=== PATIENT | female | born 1985 | race Caucasian/White ===

== ENCOUNTER → 2019-02-20 | Outpatient (REF) ==
[~2019-02-20] MED LIST: FLEXERIL 1010 MG/TAB PO
== END ==
LOC: ZMSC 22:02
DX: Z01.89 Encounter for other specified special examinations (principal)

== ENCOUNTER → 2019-02-21 | Outpatient (REF) | LOC: ZMSC 10:41 | DX: Z01.89 Encounter for other specified special examinations (principal) ==

== ENCOUNTER 2019-02-23 21:53 | Emergency (ER) | payer BC, MEDICARE ==
[~2019-02-23] VITALS: Ht 175.3 cm; Wt 86.4 kg
[2019-02-23 22:01] VITALS: TEMP 97.6
[2019-02-23] MEDS ORDERED: FLEXERIL 1010 MG/TAB PO (22:55)
[2019-02-24 00:40] VITALS: BP 119/73; PULSE 89
== END 2019-02-24 00:40 | disposition home or self-care (01) ==
LOC: COL.ER 21:53
DX: M25.511 Pain in right shoulder (principal); G89.18 Other acute postprocedural pain; Z98.890 Other specified postprocedural states; Z88.8 Allergy status to other drugs, medicaments and biological substances
CPT/HCPCS: J1170; J1885

== ENCOUNTER 2019-03-06 18:32 | Emergency (ER) | payer BC, MEDICARE ==
[~2019-03-06] VITALS: Ht 175.3 cm; Wt 86.4 kg
[2019-03-06 18:40] VITALS: BP 132/82; TEMP 97.4
[2019-03-06 19:38] LABS: BASO # 0.1 (0.0-0.2); BASO % 0.8 % (0.0-2.0); EOS % 0.2 % (0-4.0); GRAN # 9.1 (1.4-6.5); GRAN % 77.9 % (42.2-75.2); HEMATOCRIT 39.2 % (37.0-47.0); HEMOGLOBIN 12.8 g/dl (12.5-16.0); LYMPH # 2.1 (1.2-3.4); LYMPH % 17.7 % (20.0-51.0); MEAN CELL VOLUME 84 fl (80.0-100.0); MEAN CORPUSCULAR HEMOGLOBIN 27 pg (27.0-31.0); MEAN CORPUSCULAR HGB CONC 33 g/dl (33.0-37.0); MEAN PLATELET VOLUME 10.6 fl (7.4-10.4); MONO # 0.4 (0.1-0.6); PLATELET COUNT 344 K/mm3 (130-400); RED BLOOD COUNT 4.69 M/mm3 (4.10-5.30); REDCELL DISTRIBUTION WIDTH-CV 13.8 % (11.5-14.5)
[2019-03-06 20:00] LABS: ALBUMIN 4.6 gm/dL (3.5-5.0); BILIRUBIN,TOTAL 0.5 mg/dL (0.0-1.0); C-REACTIVE PROTEIN 0.8 mg/dL (0.0-0.9); CALCIUM 10.1 mg/dL (8.4-10.2); CREATININE, serum 0.72 (0.52-1.25); POTASSIUM 3.9 mmol/L (3.4-5.0); TOTAL PROTEIN 8.1 gm/dL (6.4-8.2)
[2019-03-06 21:12] VITALS: PULSE 83
== END 2019-03-06 21:12 | disposition home or self-care (01) ==
LOC: COL.ER 18:32
PROVIDERS: Emergency Medicine
DX: G89.18 Other acute postprocedural pain (principal); M25.511 Pain in right shoulder; Z98.890 Other specified postprocedural states
CPT/HCPCS: J3010

== ENCOUNTER 2020-04-29 03:47 | Emergency (ER) | payer BC, MEDICARE ==
[~2020-04-29] VITALS: Ht 175.3 cm; Wt 99.5 kg
[2020-04-29 04:43] VITALS: BP 107/63; TEMP 97.8
[2020-04-29] MEDS ORDERED: NEURONTIN800 MG/TAB PO (04:53)
[2020-04-29] MEDS ORDERED: PRILOSEC10 MG PO (04:53)
[2020-04-29] MEDS ORDERED: REQUIP2 MG PO (04:53)
[2020-04-29 05:09] LABS: ALANINE AMINOTRANSFERASE 43 U/L (4-34); ALBUMIN 4.4 gm/dL (3.5-5.0); ALKALINE PHOSPHATASE 98 U/L (50-136); ANION GAP 14 mmol/L (7-16); AST,SGOT 139 U/L (15-37); BILIRUBIN,TOTAL 0.8 mg/dL (0.0-1.0); BLOOD UREA NITROGEN 2 mg/dL (7-17); CALCIUM 9.6 mg/dL (8.4-10.2); CARBON DIOXIDE 22 mmol/L (22-30); CHLORIDE 102 mmol/L (98-107); CREATININE, serum 0.65 (0.52-1.25); GLUCOSE 127 mg/dL (74-106); LIPASE < 10 U/L (23-300); POTASSIUM 3.7 mmol/L (3.4-5.0); SODIUM 138 mmol/L (137-145)
[2020-04-29 05:24] LABS: BASO # 0.1 (0.0-0.2); BASO % 0.9 % (0.0-2.0); EOS # 0.1 (0.0-0.7); EOS % 1.2 % (0-4.0); GRAN # 7.8 (1.4-6.5); HEMATOCRIT 46.8 % (37.0-47.0); HEMOGLOBIN 15.3 g/dl (12.5-16.0); LYMPH # 1.7 (1.2-3.4); LYMPH % 16.1 % (20.0-51.0); MEAN CELL VOLUME 93 fl (80.0-100.0); MEAN CORPUSCULAR HEMOGLOBIN 30 pg (27.0-31.0); MEAN CORPUSCULAR HGB CONC 33 g/dl (33.0-37.0); MONO # 0.6 (0.1-0.6); MONO % 5.4 % (1.7-9.3); PLATELET COUNT 210 K/mm3 (130-400); RED BLOOD COUNT 5.03 M/mm3 (4.10-5.30); REDCELL DISTRIBUTION WIDTH-CV 13.1 % (11.5-14.5)
[2020-04-29 05:38] LABS: COLLECTION METHOD CLEAN CATCH
[2020-04-29 05:46] LABS: MUCOUS Present /lpf; PH 6 (5-8); URINE APPEARANCE Hazy; URINE BACTERIA Rare /hpf; URINE BILIRUBIN Positive (NEGATIVE); URINE BLOOD 3+ (NEGATIVE); URINE COLOR Amber; URINE GLUCOSE Negative (NEGATIVE); URINE KETONE 1+ (NEGATIVE); URINE LEUKOCYTE ESTERASE Trace (NEGATIVE); URINE NITRATE Negative (NEGATIVE); URINE PROTEIN(semi-quant) 2+ (NEGATIVE); URINE RBC >50 /hpf; URINE UROBILINOGEN >=4.0 mg/dL (NEGATIVE)
[2020-04-29] MEDS ORDERED: ZOFRAN 4MG T4 MG/TAB PO (07:18)
[2020-04-29] MEDS ORDERED: REGLAN 5MG T5 MG/TAB PO (07:18)
[2020-04-29 08:42] VITALS: PULSE 66
[2020-04-29] MEDS ORDERED: VANCOCIN H125 MG/CAP PO (10:07)
== END 2020-04-29 08:40 | disposition home or self-care (01) ==
LOC: COL.ER 03:47
PROVIDERS: Emergency Medicine
DX: R11.2 Nausea with vomiting, unspecified (principal); R19.7 Diarrhea, unspecified; R10.13 Epigastric pain; E66.9 Obesity, unspecified; G62.9 Polyneuropathy, unspecified; Z68.32 Body mass index [BMI] 32.0-32.9, adult; Z86.69 Personal history of other diseases of the nervous system and sense organs; Z90.49 Acquired absence of other specified parts of digestive tract
CPT/HCPCS: J1200; J2405; J2765; J7030; Q9967

== ENCOUNTER 2020-08-19 11:14 | Emergency (ER) | payer BC, MEDICARE ==
[~2020-08-19] VITALS: Ht 175.3 cm; Wt 95.5 kg
[~2020-08-19 11:14] MED LIST changes: +BRINTELLIX20 PO; +DESYREL 100MG100 MG PO; +MINIPRESS2 MG PO; +NEURONTIN800 MG/TAB PO; +PRILOSEC 20MG20 MG PO; +REGLAN 5MG T5 MG/TAB PO; +REQUIP 1MG T1 MG/TAB PO; +VANCOCIN H125 MG/CAP PO; +ZOFRAN 4MG T4 MG/TAB PO
[2020-08-19 11:25] VITALS: TEMP 98.3
[2020-08-19 12:17] LABS: COLLECTION METHOD CLEAN CATCH
[2020-08-19 12:29] LABS: BASO # 0.1 (0.0-0.2); BASO % 0.6 % (0.0-2.0); EOS # 0.1 (0.0-0.7); EOS % 0.6 % (0-4.0); GRAN # 7.8 (1.4-6.5); GRAN % 79.6 % (42.2-75.2); HEMATOCRIT 48.2 % (37.0-47.0); HEMOGLOBIN 15.9 g/dl (12.5-16.0); LYMPH # 1.3 (1.2-3.4); LYMPH % 13.1 % (20.0-51.0); MEAN CELL VOLUME 89 fl (80.0-100.0); MEAN CORPUSCULAR HEMOGLOBIN 29 pg (27.0-31.0); MEAN CORPUSCULAR HGB CONC 33 g/dl (33.0-37.0); MEAN PLATELET VOLUME 11.9 fl (7.4-10.4); MONO # 0.6 (0.1-0.6); MONO % 5.9 % (1.7-9.3); PLATELET COUNT 253 K/mm3 (130-400); RED BLOOD COUNT 5.43 M/mm3 (4.10-5.30); REDCELL DISTRIBUTION WIDTH-CV 13.1 % (11.5-14.5)
[2020-08-19 12:39] LABS: ALANINE AMINOTRANSFERASE 59 U/L (4-34); ALBUMIN 4.7 gm/dL (3.5-5.0); ALKALINE PHOSPHATASE 146 U/L (50-136); ANION GAP 15 mmol/L (7-16); AST,SGOT 164 U/L (15-37); CALCIUM 9.6 mg/dL (8.4-10.2); CARBON DIOXIDE 24 mmol/L (22-30); CHLORIDE 98 mmol/L (98-107); CREATININE, serum 0.54 (0.52-1.25); GLUCOSE 154 mg/dL (74-106); POTASSIUM 3.7 mmol/L (3.4-5.0); SODIUM 137 mmol/L (137-145); TOTAL PROTEIN 8.5 gm/dL (6.4-8.2)
[2020-08-19 12:41] LABS: MUCOUS Present /lpf; PH 5 (5-8); URINE APPEARANCE Cloudy; URINE BACTERIA Moderate /hpf; URINE BILIRUBIN Negative (NEGATIVE); URINE BLOOD 2+ (NEGATIVE); URINE COLOR Amber; URINE GLUCOSE Negative (NEGATIVE); URINE KETONE Negative (NEGATIVE); URINE LEUKOCYTE ESTERASE 2+ (NEGATIVE); URINE NITRATE Negative (NEGATIVE); URINE PROTEIN(semi-quant) 2+ (NEGATIVE); URINE UROBILINOGEN >=4.0 mg/dL (NEGATIVE); URINE WBC >50 /hpf
[2020-08-19 12:51] LABS: BLOOD UREA NITROGEN < 2 mg/dL (7-17); LIPASE < 10 U/L (23-300)
[2020-08-19] MEDS ORDERED: PHENERGAN 25 TA25 MG PO (14:47)
[2020-08-19 17:12] VITALS: BP 125/84; PULSE 81
== END 2020-08-19 17:15 | disposition home or self-care (01) ==
LOC: COL.ER 11:14
PROVIDERS: Nurse Practitioner Primary Care
DX: E86.9 Volume depletion, unspecified (principal); N39.0 Urinary tract infection, site not specified; F43.10 Post-traumatic stress disorder, unspecified; Z90.49 Acquired absence of other specified parts of digestive tract; Z32.02 Encounter for pregnancy test, result negative; Z88.8 Allergy status to other drugs, medicaments and biological substances
CPT/HCPCS: J0696; J2550; J2765; J7030

== ENCOUNTER 2020-11-10 01:16 | Emergency (ER) | payer BC, MEDICARE ==
[~2020-11-10] VITALS: Ht 175.3 cm; Wt 100.0 kg
[~2020-11-10 01:16] MED LIST changes: +NORCO 325 MG-51 TAB PO; +PHENERGAN 25 TA25 MG PO
[2020-11-10 01:31] VITALS: BP 135/82; PULSE 112; TEMP 98.3
[2020-11-10] MEDS ORDERED: FLAGYL500 MG PO (02:05)
[2020-11-10] MEDS ORDERED: ZOFRAN ODT4 MG PO (02:05)
[2020-11-10] MEDS ORDERED: BENTYL 20MG20 MG/TAB PO (02:05)
[2020-11-10 02:11] LABS: BASO # 0.1 (0.0-0.2); EOS # 0.2 (0.0-0.7); EOS % 2.3 % (0-4.0); GRAN # 3.4 (1.4-6.5); GRAN % 51.9 % (42.2-75.2); HEMATOCRIT 44.8 % (37.0-47.0); HEMOGLOBIN 14.8 g/dl (12.5-16.0); LYMPH # 2.4 (1.2-3.4); MEAN CELL VOLUME 91 fl (80.0-100.0); MEAN CORPUSCULAR HEMOGLOBIN 30 pg (27.0-31.0); MEAN CORPUSCULAR HGB CONC 33 g/dl (33.0-37.0); MEAN PLATELET VOLUME 11.5 fl (7.4-10.4); MONO # 0.5 (0.1-0.6); MONO % 7.5 % (1.7-9.3); PLATELET COUNT 178 K/mm3 (130-400); RED BLOOD COUNT 4.92 M/mm3 (4.10-5.30)
[2020-11-10 02:17] LABS: ALANINE AMINOTRANSFERASE 47 U/L (4-34); ALBUMIN 4.5 gm/dL (3.5-5.0); ALKALINE PHOSPHATASE 161 U/L (50-136); ANION GAP 24 mmol/L (7-16); AST,SGOT 150 U/L (15-37); BILIRUBIN,TOTAL 0.8 mg/dL (0.0-1.0); CALCIUM 9.1 mg/dL (8.4-10.2); CARBON DIOXIDE 18 mmol/L (22-30); CHLORIDE 95 mmol/L (98-107); SODIUM 137 mmol/L (137-145); TOTAL PROTEIN 7.9 gm/dL (6.4-8.2)
[2020-11-10 02:20] LABS: BLOOD UREA NITROGEN < 2 mg/dL (7-17); GLUCOSE 526 mg/dL (74-106)
[2020-11-10 07:00] LABS: ANION GAP 11 mmol/L (7-16); CALCIUM 7.4 mg/dL (8.4-10.2); CARBON DIOXIDE 22 mmol/L (22-30); CHLORIDE 103 mmol/L (98-107); CREATININE, serum 0.44 (0.52-1.25); GLUCOSE 203 mg/dL (74-106); POTASSIUM 3.6 mmol/L (3.4-5.0); SODIUM 136 mmol/L (137-145)
[2020-11-10 07:04] LABS: BLOOD UREA NITROGEN < 2 mg/dL (7-17)
== END 2020-11-10 08:17 | disposition home or self-care (01) ==
LOC: COL.ER 01:16
PROVIDERS: Emergency Medicine
DX: E11.10 Type 2 diabetes mellitus with ketoacidosis without coma (principal); Z87.891 Personal history of nicotine dependence
CPT/HCPCS: J1815; J2405; J2550; J7030

== ENCOUNTER 2020-11-20 11:33 | Emergency (ER) | payer BC, MEDICARE ==
[~2020-11-20] VITALS: Ht 175.3 cm; Wt 102.3 kg
[~2020-11-20 11:33] MED LIST changes: +BENTYL 20MG20 MG/TAB PO; +FLAGYL500 MG PO; +ZOFRAN ODT4 MG PO
[2020-11-20 12:04] VITALS: TEMP 97.6
[2020-11-20 13:24] LABS: BASO # 0.1 (0.0-0.2); BASO % 1.3 % (0.0-2.0); EOS # 0.1 (0.0-0.7); EOS % 0.6 % (0-4.0); GRAN # 6.6 (1.4-6.5); GRAN % 69.7 % (42.2-75.2); HEMOGLOBIN 14.2 g/dl (12.5-16.0); LYMPH # 1.9 (1.2-3.4); LYMPH % 19.8 % (20.0-51.0); MEAN CELL VOLUME 91 fl (80.0-100.0); MEAN CORPUSCULAR HEMOGLOBIN 30 pg (27.0-31.0); MEAN CORPUSCULAR HGB CONC 33 g/dl (33.0-37.0); MEAN PLATELET VOLUME 12.1 fl (7.4-10.4); MONO # 0.8 (0.1-0.6); MONO % 8.4 % (1.7-9.3); PLATELET COUNT 182 K/mm3 (130-400); RED BLOOD COUNT 4.74 M/mm3 (4.10-5.30); REDCELL DISTRIBUTION WIDTH-CV 15.4 % (11.5-14.5)
[2020-11-20 13:35] LABS: ALANINE AMINOTRANSFERASE 19 U/L (4-34); ALBUMIN 4.2 gm/dL (3.5-5.0); ALKALINE PHOSPHATASE 102 U/L (50-136); ANION GAP 16 mmol/L (7-16); AST,SGOT 98 U/L (15-37); BILIRUBIN,TOTAL 0.8 mg/dL (0.0-1.0); CALCIUM 9.6 mg/dL (8.4-10.2); CARBON DIOXIDE 22 mmol/L (22-30); CHLORIDE 98 mmol/L (98-107); GLUCOSE 109 mg/dL (74-106); LIPASE 12 U/L (23-300); POTASSIUM 3.3 mmol/L (3.4-5.0); SODIUM 136 mmol/L (137-145); TOTAL PROTEIN 7.4 gm/dL (6.4-8.2)
[2020-11-20 13:47] LABS: BLOOD UREA NITROGEN < 2 mg/dL (7-17)
[2020-11-20 13:55] LABS: COLLECTION METHOD CLEAN CATCH
[2020-11-20 14:07] LABS: MUCOUS Present /lpf; PH 6 (5-8); URINE APPEARANCE Hazy; URINE BACTERIA Rare /hpf; URINE BILIRUBIN Negative (NEGATIVE); URINE BLOOD 3+ (NEGATIVE); URINE COLOR Yellow; URINE GLUCOSE Negative (NEGATIVE); URINE KETONE 1+ (NEGATIVE); URINE LEUKOCYTE ESTERASE Trace (NEGATIVE); URINE NITRATE Negative (NEGATIVE); URINE PROTEIN(semi-quant) Negative (NEGATIVE); URINE RBC 0-2 /hpf; URINE UROBILINOGEN Negative (NEGATIVE)
[2020-11-20] MEDS ORDERED: REGLAN 10MG10 MG/TAB PO (15:32)
[2020-11-20 16:20] VITALS: BP 118/71; PULSE 74
[2020-11-22 13:35] LABS: CLOSTRIDIUM DIFF A/B NEG; CLOSTRIDIUM DIFF A/B INTERP No C.diff present
== END 2020-11-20 16:24 | disposition home or self-care (01) ==
LOC: COL.ER 11:33
PROVIDERS: Nurse Practitioner Primary Care
DX: R11.2 Nausea with vomiting, unspecified (principal); R19.7 Diarrhea, unspecified; R10.84 Generalized abdominal pain; F41.9 Anxiety disorder, unspecified; F43.10 Post-traumatic stress disorder, unspecified; Z87.891 Personal history of nicotine dependence; Z90.49 Acquired absence of other specified parts of digestive tract; Z90.89 Acquired absence of other organs; Z32.02 Encounter for pregnancy test, result negative
CPT/HCPCS: J1885; J2270; J2550; J3010; J7030

== ENCOUNTER 2021-02-03 20:53 | Emergency (ER) | payer BC, MEDICARE ==
[~2021-02-03] VITALS: Ht 175.3 cm; Wt 90.9 kg
[~2021-02-03 20:53] MED LIST changes: +REGLAN 10MG10 MG/TAB PO
[2021-02-03 21:05] VITALS: TEMP 97.7
[2021-02-03 22:20] LABS: COLLECTION METHOD CLEAN CATCH
[2021-02-03 22:30] LABS: MUCOUS Present /lpf; PH 9 (5-8); SQUAMOUS EPITHELIAL 20-50 /hpf; URINE APPEARANCE Cloudy; URINE BACTERIA Rare /hpf; URINE BILIRUBIN Positive (NEGATIVE); URINE BLOOD Negative (NEGATIVE); URINE COLOR Amber; URINE GLUCOSE Negative (NEGATIVE); URINE KETONE Trace (NEGATIVE); URINE LEUKOCYTE ESTERASE Trace (NEGATIVE); URINE NITRATE Negative (NEGATIVE); URINE PROTEIN(semi-quant) 2+ (NEGATIVE); URINE RBC 0-2 /hpf; URINE UROBILINOGEN >=4.0 mg/dL (NEGATIVE)
[2021-02-03 22:40] LABS: BASO % 0.7 % (0.0-2.0); EOS % 0.4 % (0-4.0); GRAN # 4.6 (1.4-6.5); GRAN % 85.9 % (42.2-75.2); HEMATOCRIT 39.9 % (37.0-47.0); LYMPH # 0.3 (1.2-3.4); MEAN CELL VOLUME 92 fl (80.0-100.0); MEAN CORPUSCULAR HEMOGLOBIN 30 pg (27.0-31.0); MEAN CORPUSCULAR HGB CONC 33 g/dl (33.0-37.0); MEAN PLATELET VOLUME 12.1 fl (7.4-10.4); MONO # 0.4 (0.1-0.6); MONO % 7.8 % (1.7-9.3); PLATELET COUNT 107 K/mm3 (130-400); RED BLOOD COUNT 4.32 M/mm3 (4.10-5.30); REDCELL DISTRIBUTION WIDTH-CV 16.5 % (11.5-14.5)
[2021-02-03 22:46] LABS: ALBUMIN 3.7 gm/dL (3.5-5.0); BILIRUBIN,TOTAL 2.3 mg/dL (0.0-1.0); CALCIUM 8.1 mg/dL (8.4-10.2); CREATININE, serum 0.63 (0.52-1.25); POTASSIUM 3.3 mmol/L (3.4-5.0)
[2021-02-04 00:54] LABS: MONOSCREEN NEGATIVE
[2021-02-04 01:20] VITALS: BP 128/78; PULSE 80
== END 2021-02-04 01:20 | disposition home or self-care (01) ==
LOC: COL.ER 20:53
PROVIDERS: Emergency Medicine; Nurse Practitioner
DX: R30.0 Dysuria (principal); R06.00 Dyspnea, unspecified; R07.9 Chest pain, unspecified; R10.31 Right lower quadrant pain; R10.32 Left lower quadrant pain; Z20.822 Contact with and (suspected) exposure to COVID-19; Z90.89 Acquired absence of other organs; Z90.49 Acquired absence of other specified parts of digestive tract; Z32.02 Encounter for pregnancy test, result negative
CPT/HCPCS: J0696; J1885; J2060; J2270; J2405; J7030; Q9967

== ENCOUNTER 2021-02-06 12:46 | Emergency (ER) | payer BC, MEDICARE ==
[~2021-02-06] VITALS: Ht 175.3 cm; Wt 90.9 kg
[2021-02-06 12:59] VITALS: TEMP 98.7
[2021-02-06 13:49] LABS: BASO % 0.5 % (0.0-2.0); EOS % 0.2 % (0-4.0); GRAN # 4.6 (1.4-6.5); GRAN % 82.5 % (42.2-75.2); HEMATOCRIT 42.3 % (37.0-47.0); LYMPH # 0.5 (1.2-3.4); LYMPH % 8.5 % (20.0-51.0); MEAN CELL VOLUME 92 fl (80.0-100.0); MEAN CORPUSCULAR HEMOGLOBIN 30 pg (27.0-31.0); MEAN CORPUSCULAR HGB CONC 33 g/dl (33.0-37.0); MEAN PLATELET VOLUME 12.3 fl (7.4-10.4); MONO # 0.5 (0.1-0.6); MONO % 8.1 % (1.7-9.3); PLATELET COUNT 109 K/mm3 (130-400); REDCELL DISTRIBUTION WIDTH-CV 16.8 % (11.5-14.5)
[2021-02-06 14:05] LABS: ALANINE AMINOTRANSFERASE 45 U/L (4-34); ALBUMIN 4.1 gm/dL (3.5-5.0); ALKALINE PHOSPHATASE 101 U/L (50-136); ANION GAP 16 mmol/L (7-16); AST,SGOT 171 U/L (15-37); BILIRUBIN,TOTAL 0.8 mg/dL (0.0-1.0); CALCIUM 9.4 mg/dL (8.4-10.2); CARBON DIOXIDE 17 mmol/L (22-30); CHLORIDE 100 mmol/L (98-107); CREATININE, serum 0.59 (0.52-1.25); GLUCOSE 129 mg/dL (74-106); POTASSIUM 3.3 mmol/L (3.4-5.0); SODIUM 133 mmol/L (137-145); TOTAL PROTEIN 7.9 gm/dL (6.4-8.2)
[2021-02-06 14:09] LABS: BLOOD UREA NITROGEN < 2 mg/dL (7-17)
[2021-02-06 15:22] LABS: COLLECTION METHOD CLEAN CATCH
[2021-02-06 15:35] LABS: MUCOUS Present /lpf; PH 5 (5-8); SQUAMOUS EPITHELIAL 0-2 /hpf; URINE APPEARANCE Hazy; URINE BACTERIA None Seen /hpf; URINE BILIRUBIN Negative (NEGATIVE); URINE BLOOD 1+ (NEGATIVE); URINE COLOR Yellow; URINE GLUCOSE Negative (NEGATIVE); URINE KETONE 1+ (NEGATIVE); URINE LEUKOCYTE ESTERASE Negative (NEGATIVE); URINE NITRATE Negative (NEGATIVE); URINE PROTEIN(semi-quant) Negative (NEGATIVE); URINE RBC 0-2 /hpf; URINE UROBILINOGEN Negative (NEGATIVE)
[2021-02-06] MEDS ORDERED: PERCOCET 325 MG1 TA2 PO (16:17)
[2021-02-06] MEDS ORDERED: PROMETHAZINE12.5 M5 PO (16:17)
[2021-02-06 16:37] VITALS: BP 103/59; PULSE 103
== END 2021-02-06 16:45 | disposition home or self-care (01) ==
LOC: COL.ER 12:46
PROVIDERS: Physician Assistant
DX: G89.29 Other chronic pain (principal); E11.40 Type 2 diabetes mellitus with diabetic neuropathy, unspecified; F41.9 Anxiety disorder, unspecified
CPT/HCPCS: J1630; J1885; J2550; J7030

== ENCOUNTER 2021-04-07 20:11 | Emergency (ER) | payer BC, MEDICARE ==
[~2021-04-07] VITALS: Ht 175.3 cm; Wt 90.0 kg
[~2021-04-07 20:11] MED LIST changes: +PERCOCET 325 MG1 TA2 PO; +PROMETHAZINE12.5 M5 PO
[2021-04-07 21:54] LABS: BASO # 0.1 (0.0-0.2); BASO % 1.1 % (0.0-2.0); EOS % 0.9 % (0-4.0); GRAN # 2.9 (1.4-6.5); GRAN % 64.9 % (42.2-75.2); HEMATOCRIT 41.1 % (37.0-47.0); HEMOGLOBIN 13.4 g/dl (12.5-16.0); LYMPH # 1.1 (1.2-3.4); LYMPH % 24.7 % (20.0-51.0); MEAN CELL VOLUME 93 fl (80.0-100.0); MEAN CORPUSCULAR HEMOGLOBIN 30 pg (27.0-31.0); MEAN CORPUSCULAR HGB CONC 33 g/dl (33.0-37.0); MEAN PLATELET VOLUME 12.8 fl (7.4-10.4); MONO # 0.4 (0.1-0.6); MONO % 8.2 % (1.7-9.3); PLATELET COUNT 90 K/mm3 (130-400); RED BLOOD COUNT 4.44 M/mm3 (4.10-5.30); REDCELL DISTRIBUTION WIDTH-CV 13.9 % (11.5-14.5)
[2021-04-07 21:59] LABS: BILIRUBIN,TOTAL 1.6 mg/dL (0.0-1.0); C-REACTIVE PROTEIN 0.8 mg/dL (0.0-0.9); CALCIUM 8.9 mg/dL (8.4-10.2); CREATININE, serum 0.53 (0.52-1.25); POTASSIUM 3.3 mmol/L (3.4-5.0); TOTAL PROTEIN 7.7 gm/dL (6.4-8.2)
[2021-04-07 22:50] LABS: COLLECTION METHOD CLEAN CATCH
[2021-04-07 22:58] LABS: PH 7 (5-8); SQUAMOUS EPITHELIAL 0-2 /hpf; URINE APPEARANCE Clear; URINE BACTERIA Rare /hpf; URINE BILIRUBIN Negative (NEGATIVE); URINE BLOOD 3+ (NEGATIVE); URINE COLOR Yellow; URINE GLUCOSE Negative (NEGATIVE); URINE KETONE Negative (NEGATIVE); URINE LEUKOCYTE ESTERASE Negative (NEGATIVE); URINE NITRATE Negative (NEGATIVE); URINE PROTEIN(semi-quant) Negative (NEGATIVE); URINE RBC None Seen /hpf; URINE UROBILINOGEN Negative (NEGATIVE); URINE WBC 0-2 /hpf
[2021-04-07] MEDS ORDERED: PHENERGAN 25 TA25 MG PO (23:27)
[2021-04-07 23:58] VITALS: BP 113/77; PULSE 75; TEMP 97.8
== END 2021-04-08 00:19 | disposition home or self-care (01) ==
LOC: COL.ER 20:11
PROVIDERS: Nurse Practitioner Primary Care
DX: R19.7 Diarrhea, unspecified (principal); E86.0 Dehydration; R11.2 Nausea with vomiting, unspecified; R10.30 Lower abdominal pain, unspecified; Z90.49 Acquired absence of other specified parts of digestive tract
CPT/HCPCS: J2270; J2405; J2550; J7030

== ENCOUNTER 2021-10-02 09:29 | Emergency (ER) | payer BC, MEDICARE ==
[~2021-10-02] VITALS: Ht 175.3 cm; Wt 84.1 kg
[2021-10-02 09:50] VITALS: TEMP 98.1
[2021-10-02 10:32] LABS: BASO # 0.1 K/mm3 (0.0-0.2); EOS # 0.1 K/mm3 (0.0-0.7); EOS % 1.1 % (0-4.0); GRAN # 7.4 K/mm3 (1.4-6.5); HEMOGLOBIN 11.7 g/dl (12.5-16.0); LYMPH # 1.1 K/mm3 (1.2-3.4); LYMPH % 12.4 % (20.0-51.0); MEAN CELL VOLUME 93 fl (80.0-100.0); MEAN CORPUSCULAR HEMOGLOBIN 31 pg (27.0-31.0); MEAN CORPUSCULAR HGB CONC 34 g/dl (33.0-37.0); MONO # 0.5 K/mm3 (0.1-0.6); MONO % 5.2 % (1.7-9.3); PLATELET COUNT 212 K/mm3 (130-400); RED BLOOD COUNT 3.74 M/mm3 (4.10-5.30); REDCELL DISTRIBUTION WIDTH-CV 13.4 % (11.5-14.5)
[2021-10-02 10:34] LABS: HEMATOCRIT 34.7 % (37.0-47.0)
[2021-10-02 10:43] LABS: ALANINE AMINOTRANSFERASE 69 U/L (0-55); ALBUMIN 3.2 gm/dL (3.5-5.0); ALKALINE PHOSPHATASE 124 U/L (40-150); ANION GAP 14 mmol/L (7-16); AST,SGOT 315 U/L (5-34); BILIRUBIN,TOTAL 3.9 mg/dL (0.2-1.2); BLOOD UREA NITROGEN 7 mg/dL (7-19); CALCIUM 9.7 mg/dL (8.4-10.2); CARBON DIOXIDE 19 mmol/L (22-29); CHLORIDE 95 mmol/L (98-107); CREATININE, serum 0.83 mg/dL (0.57-1.11); POTASSIUM 4.4 mmol/L (3.5-4.5); SODIUM 128 mmol/L (136-145)
[2021-10-02 10:44] LABS: GLUCOSE 415 mg/dL (70-99)
[2021-10-02 10:45] LABS: LIPASE < 4 U/L (8-78)
[2021-10-02 10:54] LABS: ACETONE,SERUM NEGATIVE
[2021-10-02 12:30] LABS: COLLECTION METHOD CLEAN CATCH
[2021-10-02 12:37] LABS: MUCOUS Present (NOT PRESENT); PH 6 (5-8); URINE APPEARANCE Clear (CLEAR/HAZY); URINE BACTERIA None Seen (NONE SEEN); URINE BILIRUBIN Negative (NEGATIVE); URINE BLOOD Negative (NEGATIVE); URINE COLOR Amber (YELLOW); URINE GLUCOSE 3+ (NEGATIVE); URINE KETONE 1+ (NEGATIVE); URINE LEUKOCYTE ESTERASE Negative (NEGATIVE); URINE NITRATE Negative (NEGATIVE); URINE PROTEIN(semi-quant) Negative (NEGATIVE); URINE RBC 0-2 /hpf (0-2)
[2021-10-02 12:50] VITALS: BP 128/67; PULSE 88
[2021-10-02] MEDS ORDERED: GLUCOPHAGE1000 MG PO (12:50)
== END 2021-10-02 13:00 | disposition home or self-care (01) ==
LOC: COL.ER 09:29
PROVIDERS: Emergency Medicine; Nurse Practitioner Primary Care
DX: E11.65 Type 2 diabetes mellitus with hyperglycemia (principal); R94.5 Abnormal results of liver function studies
CPT/HCPCS: J2405; J2550; J7030; Q9967

== ENCOUNTER 2022-03-14 09:43 | Emergency (ER) | payer BC, MEDICARE ==
[~2022-03-14] VITALS: Ht 175.3 cm; Wt 81.8 kg
[~2022-03-14 09:43] MED LIST changes: +GLUCOPHAGE1000 MG PO
[2022-03-14 09:51] VITALS: BP 127/88
[2022-03-14 10:13] LABS: BASO % 0.7 % (0.0-2.0); EOS % 0.7 % (0.0-4.0); GRAN # 2.1 K/mm3 (1.4-6.5); GRAN % 52.8 % (42.2-75.2); LYMPH # 1.6 K/mm3 (1.2-3.4); LYMPH % 38.8 % (20.0-51.0); MEAN CELL VOLUME 77 fl (80.0-100.0); MEAN CORPUSCULAR HEMOGLOBIN 26 pg (27-31); MEAN CORPUSCULAR HGB CONC 33 g/dl (33.0-37.0); MEAN PLATELET VOLUME 10.7 fl (7.4-10.4); MONO # 0.3 K/mm3 (0.1-0.6); PLATELET COUNT 150 K/mm3 (130-400); RED BLOOD COUNT 4.66 M/mm3 (4.10-5.30); REDCELL DISTRIBUTION WIDTH-CV 14.2 % (11.5-14.5)
[2022-03-14 10:15] LABS: HEMATOCRIT 35.9 % (37.0-47.0)
[2022-03-14 10:37] LABS: ERYTHROCYTE SEDIMENTATION RATE 5 mm/hr (0-20)
[2022-03-14] MEDS ORDERED: ROXICODONE 55 MG/TAB PO ×3 (11:05→12:03)
[2022-03-14 11:26] VITALS: PULSE 94; TEMP 98.2
== END 2022-03-14 11:20 | disposition home or self-care (01) ==
LOC: COL.ER 09:43
PROVIDERS: Emergency Medicine
DX: M25.571 Pain in right ankle and joints of right foot (principal); D72.819 Decreased white blood cell count, unspecified; Z96.661 Presence of right artificial ankle joint; Z98.890 Other specified postprocedural states
CPT/HCPCS: J1170

== ENCOUNTER 2022-04-14 21:37 | Emergency (ER) | payer BC, MEDICARE ==
[~2022-04-14] VITALS: Ht 175.3 cm; Wt 81.8 kg
[~2022-04-14 21:37] MED LIST changes: +ROXICODONE 55 MG/TAB PO
[2022-04-14 23:08] LABS: COLLECTION METHOD CLEAN CATCH
[2022-04-14 23:13] LABS: BASO # 0.1 K/mm3 (0.0-0.2); BASO % 0.9 % (0.0-2.0); EOS % 0.1 % (0.0-4.0); GRAN # 4.9 K/mm3 (1.4-6.5); GRAN % 66.2 % (42.2-75.2); HEMATOCRIT 43.2 % (37.0-47.0); HEMOGLOBIN 14.4 g/dl (12.5-16.0); LYMPH # 1.9 K/mm3 (1.2-3.4); MEAN CELL VOLUME 78 fl (80.0-100.0); MEAN CORPUSCULAR HEMOGLOBIN 26 pg (27-31); MEAN CORPUSCULAR HGB CONC 33 g/dl (33.0-37.0); MEAN PLATELET VOLUME 10.8 fl (7.4-10.4); MONO # 0.5 K/mm3 (0.1-0.6); MONO % 6.5 % (1.7-9.3); PLATELET COUNT 188 K/mm3 (130-400); RED BLOOD COUNT 5.54 M/mm3 (4.10-5.30); REDCELL DISTRIBUTION WIDTH-CV 15.6 % (11.5-14.5)
[2022-04-14 23:31] LABS: ALANINE AMINOTRANSFERASE 22 U/L (0-55); ALBUMIN 4.7 gm/dL (3.5-5.0); ALCOHOL(ethanol),MEDICAL 59 mg/dL (0-10); ALKALINE PHOSPHATASE 73 U/L (40-150); ANION GAP 20 mmol/L (7-16); AST,SGOT 35 U/L (5-34); BILIRUBIN,TOTAL 0.9 mg/dL (0.2-1.2); BLOOD UREA NITROGEN 5 mg/dL (7-19); CALCIUM 9.1 mg/dL (8.4-10.2); CARBON DIOXIDE 18 mmol/L (22-29); CHLORIDE 98 mmol/L (98-107); CREATININE, serum 0.73 mg/dL (0.57-1.11); GLUCOSE 101 mg/dL (70-99); POTASSIUM 3.9 mmol/L (3.5-4.5); SODIUM 136 mmol/L (136-145)
[2022-04-15 00:28] LABS: MUCOUS Present (NOT PRESENT); PH 6 (5-8); SQUAMOUS EPITHELIAL 20-50 /hpf (0-10); URINE APPEARANCE Cloudy (CLEAR/HAZY); URINE BACTERIA Rare /hpf (NONE SEEN); URINE BILIRUBIN Negative (NEGATIVE); URINE BLOOD Negative (NEGATIVE); URINE COLOR Yellow (YELLOW); URINE GLUCOSE Negative (NEGATIVE); URINE KETONE Trace (NEGATIVE); URINE LEUKOCYTE ESTERASE Trace (NEGATIVE); URINE NITRATE Negative (NEGATIVE); URINE PROTEIN(semi-quant) 2+ (NEGATIVE); URINE UROBILINOGEN Negative (NEGATIVE)
[2022-04-15 03:48] LABS: ACETAMINOPHEN < 1.0 ug/mL (10-30); SALICYLATE < 5.0 mg/dL (15.0-30.0)
[2022-04-15 03:55] LABS: TRICYCLIC ANTIDEPRESS URINE POSITIVE
[2022-04-15 04:15] VITALS: BP 137/85; PULSE 94; TEMP 98.8
[2022-04-15 04:16] LABS: TROPONIN-I < 0.010 ng/mL (0.00-0.033)
[2022-04-16] MEDS ORDERED: SEROQUEL 1100 MG/TAB PO (03:29)
[2022-04-16] MEDS ORDERED: KLONOPIN 0.5MG0.5 MG PO (04:05)
== END 2022-04-15 04:15 | disposition home or self-care (01) ==
LOC: COL.ER 21:37
PROVIDERS: Nurse Practitioner
DX: R45.851 Suicidal ideations (principal); F10.20 Alcohol dependence, uncomplicated; F41.9 Anxiety disorder, unspecified; F17.290 Nicotine dependence, other tobacco product, uncomplicated
CPT/HCPCS: J2060; J2405; J2550; J3010; J7030

== ENCOUNTER 2022-04-16 02:34 | Emergency (ER) | payer BC, MEDICARE ==
[~2022-04-16] VITALS: Ht 175.3 cm; Wt 81.8 kg
[2022-04-16 02:38] VITALS: TEMP 97.9
[2022-04-16 03:11] LABS: BASO % 0.7 % (0.0-2.0); EOS # 0.1 K/mm3 (0.0-0.7); EOS % 1.4 % (0.0-4.0); GRAN # 2.2 K/mm3 (1.4-6.5); GRAN % 51.9 % (42.2-75.2); HEMATOCRIT 37.6 % (37.0-47.0); LYMPH # 1.6 K/mm3 (1.2-3.4); LYMPH % 37.3 % (20.0-51.0); MEAN CELL VOLUME 81 fl (80.0-100.0); MEAN CORPUSCULAR HEMOGLOBIN 26 pg (27-31); MEAN CORPUSCULAR HGB CONC 32 g/dl (33.0-37.0); MEAN PLATELET VOLUME 10.9 fl (7.4-10.4); MONO # 0.4 K/mm3 (0.1-0.6); MONO % 8.7 % (1.7-9.3); PLATELET COUNT 160 K/mm3 (130-400); RED BLOOD COUNT 4.67 M/mm3 (4.10-5.30); REDCELL DISTRIBUTION WIDTH-CV 16.2 % (11.5-14.5)
[2022-04-16 03:12] LABS: HEMOGLOBIN 12.2 g/dl (12.5-16.0)
[2022-04-16] MEDS ORDERED: SEROQUEL 1100 MG/TAB PO (03:29)
[2022-04-16 03:30] LABS: ALANINE AMINOTRANSFERASE 16 U/L (0-55); ALBUMIN 3.6 gm/dL (3.5-5.0); ALKALINE PHOSPHATASE 66 U/L (40-150); ANION GAP 15 mmol/L (7-16); AST,SGOT 26 U/L (5-34); BILIRUBIN,TOTAL 1.1 mg/dL (0.2-1.2); BLOOD UREA NITROGEN 9 mg/dL (7-19); CALCIUM 8.9 mg/dL (8.4-10.2); CARBON DIOXIDE 20 mmol/L (22-29); CHLORIDE 102 mmol/L (98-107); CREATININE, serum 0.85 mg/dL (0.57-1.11); GLUCOSE 251 mg/dL (70-99); POTASSIUM 3.7 mmol/L (3.5-4.5); SODIUM 137 mmol/L (136-145)
[2022-04-16 03:32] LABS: ALCOHOL(ethanol),MEDICAL < 10 mg/dL (0-10)
[2022-04-16 03:49] LABS: TOTAL PROTEIN 7.1 gm/dL (6.2-8.1)
[2022-04-16] MEDS ORDERED: KLONOPIN 0.5MG0.5 MG PO (04:05)
[2022-04-16 04:06] VITALS: BP 103/68; PULSE 86
== END 2022-04-16 04:19 | disposition home or self-care (01) ==
LOC: COL.ER 02:34
PROVIDERS: Emergency Medicine
DX: F41.9 Anxiety disorder, unspecified (principal); R11.0 Nausea; F17.290 Nicotine dependence, other tobacco product, uncomplicated
CPT/HCPCS: J2060; J7030

== ENCOUNTER 2023-11-17 19:37 | Emergency (ER) | payer MEDICARE ==
[~2023-11-17] VITALS: Ht 175.3 cm; Wt 72.7 kg
[~2023-11-17 19:37] MED LIST changes: +KLONOPIN 0.5MG0.5 MG PO; +SEROQUEL 1100 MG/TAB PO
[2023-11-17 19:55] VITALS: TEMP 98
[2023-11-17 20:37] LABS: BASO % 0.5 % (0.0-2.0); EOS % 0.1 % (0.0-4.0); GRAN # 5.4 K/mm3 (1.4-6.5); GRAN % 72.4 % (42.2-75.2); HEMATOCRIT 45.4 % (37.0-47.0); HEMOGLOBIN 15.8 g/dl (12.5-16.0); LYMPH # 1.5 K/mm3 (1.2-3.4); LYMPH % 20.2 % (20.0-51.0); MEAN CELL VOLUME 84 fl (80.0-100.0); MEAN CORPUSCULAR HEMOGLOBIN 29 pg (27-31); MEAN CORPUSCULAR HGB CONC 35 g/dl (33.0-37.0); MEAN PLATELET VOLUME 10.7 fl (7.4-10.4); MONO # 0.5 K/mm3 (0.1-0.6); MONO % 6.5 % (1.7-9.3); PLATELET COUNT 205 K/mm3 (130-400); RED BLOOD COUNT 5.41 M/mm3 (4.10-5.30); REDCELL DISTRIBUTION WIDTH-CV 14.5 % (11.5-14.5)
[2023-11-17 20:45] LABS: ALBUMIN 4.6 gm/dL (3.5-5.0); BILIRUBIN,TOTAL 1.1 mg/dL (0.2-1.2); CALCIUM 9.4 mg/dL (8.4-10.2); CREATININE, serum 0.8 mg/dL (0.57-1.11); POTASSIUM 3.8 mmol/L (3.5-4.5); TOTAL PROTEIN 8.2 gm/dL (6.2-8.1)
[2023-11-17 21:05] LABS: TSH w REFLEX 4.725 uIU/mL (0.350-4.940)
[2023-11-17 21:42] LABS: COLLECTION METHOD CLEAN CATCH
[2023-11-17 21:56] LABS: SQUAMOUS EPITHELIAL 0-2 /hpf (0-10); URINE APPEARANCE Clear (CLEAR/HAZY); URINE BACTERIA Rare /hpf (NONE SEEN); URINE BLOOD Negative (NEGATIVE); URINE COLOR Yellow (YELLOW); URINE GLUCOSE Negative (NEGATIVE); URINE KETONE Negative (NEGATIVE); URINE NITRATE Negative (NEGATIVE); URINE PROTEIN(semi-quant) Negative (NEGATIVE); URINE RBC 0-2 /hpf (0-2); URINE UROBILINOGEN 0.2 E.U/dL (0.2-1.0)
[2023-11-17 22:18] VITALS: BP 116/76; PULSE 63
== END 2023-11-17 22:18 | disposition home or self-care (01) ==
LOC: COL.ER 19:37
PROVIDERS: Emergency Medicine
DX: B34.9 Viral infection, unspecified (principal); R53.83 Other fatigue; R00.2 Palpitations
CPT/HCPCS: J2060; J7120

== ENCOUNTER 2023-11-18 17:59 | Emergency (ER) | payer BC ==
[~2023-11-18] VITALS: Ht 175.3 cm; Wt 72.7 kg
[2023-11-18 18:05] VITALS: TEMP 97.9
[2023-11-18 20:37] VITALS: BP 108/72; PULSE 66
== END 2023-11-18 20:37 | disposition home or self-care (01) ==
LOC: COL.ER 17:59
DX: G47.00 Insomnia, unspecified (principal); F41.9 Anxiety disorder, unspecified; R45.851 Suicidal ideations; B34.9 Viral infection, unspecified; R05.9 Cough, unspecified; R09.81 Nasal congestion

== ENCOUNTER 2024-04-25 18:14 | Inpatient (IN) | payer OTHER, MEDICARE ==
[~2024-04-25] VITALS: Ht 175.3 cm; Wt 85.0 kg
[2024-04-25] MEDS ORDERED: droPERidol 2.5 MG/ML 2 ML VIAL IV ONE (19:15)
[2024-04-25] MEDS ORDERED: NS 1,000 ML IV ONE ×2 (19:45)
[2024-04-25] MEDS ORDERED: Insulin Human Regular/NS 100 ML IV ONE (19:45)
[2024-04-25] MEDS ORDERED: Insulin Regular Human (NovoLIN R/HumuLIN R) IV ONE (19:45)
[2024-04-25] MEDS ORDERED: Iohexol 300 - 100 ML VIAL IV ONE (19:53)
[2024-04-25] MEDS ORDERED: NS 100 ML IV SCH (19:55)
[2024-04-25] MEDS ORDERED: clonazePAM 0.5 MG TAB PO PRN (21:00)
[2024-04-25] MEDS ORDERED: Gabapentin 400 MG CAP PO SCH (21:00)
[2024-04-25] MEDS ORDERED: Patient's Own Medication Item PO SCH (21:03)
[2024-04-25] MEDS ORDERED: Insulin Human Regular/NS 100 ML IV SCH (21:15)
[2024-04-25] MEDS ORDERED: D5W 1,000 ML IV SCH (21:15)
[2024-04-25] MEDS ORDERED: NS & 20 mEq KCl 1,000 ML IV SCH (21:15)
[2024-04-25] MEDS ORDERED: CARAFATE 1GM1 G PO (21:16)
[2024-04-25] MEDS ORDERED: PROTONIX 40MG T40 MG PO (21:16)
[2024-04-25] MEDS ORDERED: MINIPRESS 5M5 MG/CAP PO (21:17)
[2024-04-25] MEDS ORDERED: RESTORIL30 MG PO (21:18)
[2024-04-25] MEDS ORDERED: ADDERALL XR20 MG PO (21:18)
[2024-04-25] MEDS ORDERED: OZEMPIC1 MG/0.71 SQ (21:19)
[2024-04-25] MEDS ORDERED: Pantoprazole 40 MG in NS 10 ML IV SCH (21:36)
[2024-04-25] MEDS ORDERED: Mag/Al Hydrox/Simeth Susp 30 ML CUP PO PRN ×2 (21:45→23:15)
[2024-04-25] MEDS ORDERED: Acetaminophen 325 MG TAB PO PRN (21:45)
--- NOTE | 2024-04-25 21:45 | NUR ---
Received report from ED nurse, Zenia.
--- NOTE | 2024-04-25 22:13 | NUR ---
Patient arrives to ICU room 1 via ED stretcher. Patient is alert and oriented and able to ambulate independently to ICU bed. Initial vitals within normal limits. She reports significant pain to the left chest area rated 8/10 - patient states this pain makes it hurt to breath. César notified; orders received. Reports mild nausea. Arrives receiving IVF according to orders in [facility]. Insulin drip continues at 2 units/hr. Initial BG within ICU of 214 - César notified; orders received to shut drip off. Will administer Lantus and transition patient to ACHS accuchecks with moderate sliding scale.
[2024-04-25 22:15] VITALS: BP 123/88; PULSE 82; TEMP 98
[2024-04-25] MEDS ORDERED: Insulin Glargine-ygfn (Lantus) SQ SCH (23:00)
--- NOTE | 2024-04-25 23:12 | NUR ---
Patient's belongings include street clothes, sandals, a set of keys, a blanket, a cell phone, a charging block and cable, a silver-colored necklace, earrings, and a nose ring. Patient denies having a purse or wallet with her. Denies having dentures, hearing aids, or glasses.
[2024-04-25] MEDS ORDERED: Dextrose 50% Water 25 GM/50 ML SYRINGE IV PRN (23:15)
[2024-04-25] MEDS ORDERED: Dextrose (Glucose) 15 GM (4 x 3.75 GM) Chewable TABLET PACK PO PRN (23:15)
[2024-04-25] MEDS ORDERED: oxyCODONE 5 MG TAB PO PRN (23:15)
[2024-04-25] MEDS ORDERED: Morphine 4 MG/ML VIAL IV PRN (23:15)
[2024-04-25] MEDS ORDERED: Glucagon 1 MG VIAL IM PRN (23:15)
[2024-04-25] MEDS ORDERED: *Potassium Replacement Protocol MC SCH (23:30)
[2024-04-25] MEDS ORDERED: Potassium Chloride 100 ML IV SCH (23:30)
[2024-04-26] VITALS (8 sets, daily range): BP systolic 112–147; BP diastolic 75–100; PULSE 68–101; TEMP 98–98.5
[2024-04-26] MEDS ORDERED: Insulin Lispro (HumaLOG) SQ SCH (08:00)
[2024-04-26] MEDS ORDERED: Nicotine 21 MG DAILY PATCH TD SCH (09:00)
--- NOTE | 2024-04-26 09:15 | NUR ---
Patient alert and oriented. VS stable. Reporting left sided abdominal pain which is sharp in nature. Rates pain at a 7/10. Denies other concerns or complaints at this time. PRN pain medication administered. Call light left within reach.
--- NOTE | 2024-04-26 09:37 | NUR ---
darkroom worker met with patient to discuss discharge planning. Patient reports she lives in [place] with her , Kingston, P# [phone]. Patient stated this number is Kingston's work number and would be the best number to reach him on. PCP is Dr. Salinas, pharmacy is [facility] [address]. Insurance is listed as UMR but patient stated she is disabled and either has Medicare or Medicaid she was uncertain. Patient also stated she was uncertain which would be primary. Patient stated her DPOA-HC is [place]. No DME, patient reports to be independent with ADLS. Patient stated her antidepressant can be expensive, nursing home social worker discussed [facility] and discussing with her pharmacist about any discount card or programs available for the specific medication. Patient stated she is able to transport to and from appointments. Patient would like to return home at time of discharge. SW contacted Alexa with financial counseling whom checked patient's insurance and reports she previously had [facility] but does not currently. Alexa found that patient has Medicare A and B ID # [id number]. Alexa believes patient's UMR would be primary and Medicare secondary. DIscharge plan: Home
[2024-04-26] MEDS ORDERED: Magnesium Sulfate 1 GM/100 ML IV Soln IV SCH (10:30)
--- NOTE | 2024-04-26 11:05 | NUR ---
Patient transfered to medical floor via wheelchair. Tolerated transfer well. Assisted to the bathroom in medical room; gait steady. Met receiving RNAdri in room upon arrival.
--- NOTE | 2024-04-26 11:15 | NUR ---
PATIENT AWAKE AND ALERT, SITTING UP IN BED. PATIENT DENIES ANY NEEDS OR COMPLIANTS AT THIS TIME. PATIENT ARRIVED FROM ICU IN STABLE CONDITION. IV MAG INFUSING, PATIENT ORIENTED TO NEW ROOM. CALL LIGHT WITHIN REACH.
--- NOTE | 2024-04-26 14:00 | NUR ---
PATIENT HAS HAD INUMEROUS SNACKS, AND 2 MEALS FOR LUNCH AND CONTINUES TO CALL FOR FOOD. HOWEVER THEN ALSO COMPLAINTS ABOUT HER ABDOMINAL PAIN. PATIENT EDUCATED ON LOW FAT AND LOW CARB DIET, AND HER BLOOD SUGAR CONTINUOUSLY BEING ELEVATED. PATIENT JUST KEEPS STATING THAT SHE IS HUNGRY AND PROCEEDS TO ASK FOR OTHER FOOD ITEMS. MD MADE AWARE
[2024-04-26] MEDS ORDERED: traZODone 100 MG TAB PO SCH (21:00)
--- NOTE | 2024-04-26 21:00 | NUR ---
UPON SHIFT ASSESSMENT,KEERTHI WAS IN BED EATING PEANUTBUTTER AND RICKIE CRACKERS. SHE IS AXO X 4 AND BOWEL SOUNDS ARE PRESENT IN ALL QUADRANTS. SHE CONTINUES TO COMPLAIN OF LEFT UPPER GASTRIC PAIN AND INCREASED HUNGER AND HAS REQUESTED SANDWHICH TRAY. DAYSHIFT HAS DISCLOSED THAT KEERTHI HAS EATEN DINNER TRAY WITH ADDITIONAL SANDWHICH BOX ALREADY, AND SEVERAL SNACKS WELL. PATIENT EDUCATION WAS PROVIDED ON HER ELEVATED LIPID LEVELS AND BLOOD GLUCOSE. LOW FAT, SUGAR FREE PUDDINGS PROVIDED FOR SNACK. MOST RECENT BG WAS 290. PATIENT C/O 8/10 ABDOMINAL PAIN, PRN ROXICODONE GIVEN.
--- NOTE | 2024-04-26 22:45 | NUR ---
PATIENT REQUESTED PRN KLONIPIN. STATED, "I AM STARTING TO HAVE ANXIETY." VITAL SIGNS WNL, HOWEVER, PATIENT AFFECT APPEARS ANXIOUS AND AGITATED. 05 MG KLONOPIN ADMINISTERED.
--- NOTE | 2024-04-27 00:50 | NUR ---
PATIENT REQUESTED SANDWHICH BOX. COOKIE AND MAYONAISE REMOVED TO ALIGN WITH DIET ORDERS. DIET PESI GIVEN. PATIENT'S PREVIOUS ANXIETY RESOLVING. DENIES UPPER GASTRIC PAIN.
[2024-04-27 03:32] VITALS: BP 138/66; PULSE 77; TEMP 98
[2024-04-27 07:07] VITALS: BP 114/76; PULSE 81; TEMP 98.3
--- NOTE | 2024-04-27 07:15 | NUR ---
PATIENT AWAKE AND ALERT, SITTING UP IN BED. CALL LIGHT WITHIN REACH. PATIENT DENIES ANY NEEDS AT THIS TIME.
[2024-04-27] MEDS ORDERED: SYNTHROID0.05 MG/TA PO (10:30)
--- NOTE | 2024-04-27 10:30 | NUR ---
PER MD PATIENT SET TO DISCHAGRE LATER TODAY.PATIENT WILL PERFORM HER OWN BLOOD SUGAR AND ISNULIN ADMINISTRATION FOR LUNCH TO ENSURE SHE CAN SAFELY AND ACCURATELY DO SO AT HOME.
[2024-04-27] MEDS ORDERED: IMITREX50 MG PO (10:31)
[2024-04-27 11:28] VITALS: BP 121/76; PULSE 72; TEMP 97.6
[2024-04-27] MEDS ORDERED: ROXICODONE 55 MG/TAB PO (11:28)
[2024-04-27] MEDS ORDERED: INSULIN PEN NE1 EAC1 MC (11:31)
[2024-04-27] MEDS ORDERED: NOVOLOG FLEX100 U/ML SQ (11:31)
[2024-04-27] MEDS ORDERED: INSULIN GL100 UNIT/2 SQ (11:31)
[2024-04-27] MEDS ORDERED: BD ALCOHOL1 SWA MC (11:31)
--- NOTE | 2024-04-27 12:11 | NUR ---
PATIENT GIVEN DIABETES EDUCATIN BY CHEMIST INSTRUMENTATION.
--- NOTE | 2024-04-27 12:11 | NUR ---
PATIENT GIVEN DISCHARGE INSTRUCITONS AND EDUCAITON. IV REMOVED.
--- NOTE | 2024-04-27 12:43 | NUR ---
PATIENT TAKEN TO ER ENTRANCE WHERE SHE LEFT INSTBALE CONDITION.
[2024-04-27] MEDS ORDERED: Insulin Glargine-ygfn (Lantus) SQ SCH (21:00)
== END 2024-04-27 12:43 | disposition home or self-care (01) | DRG 438 ==
LOC: COL.ER 18:14 → ICU 20:59 → MEDICAL 04-26 11:30
PROVIDERS: Nurse Practitioner Primary Care; Physician Assistant; ADMIT Internal Medicine
DX: K85.90 Acute pancreatitis without necrosis or infection, unspecified (principal); E11.00 Type 2 diabetes mellitus with hyperosmolarity without nonketotic hyperglycemic-hyperosmolar coma (NKHHC); J45.909 Unspecified asthma, uncomplicated; F41.9 Anxiety disorder, unspecified; F32.A Depression, unspecified; K21.9 Gastro-esophageal reflux disease without esophagitis; F10.10 Alcohol abuse, uncomplicated; G47.00 Insomnia, unspecified; Z90.49 Acquired absence of other specified parts of digestive tract; Z90.89 Acquired absence of other organs; Z88.8 Allergy status to other drugs, medicaments and biological substances; Z79.899 Other long term (current) drug therapy
CPT/HCPCS: C9113; J0780; J1650; J1790; J1815; J2270; J3475; J3480; J7030; Q9967

== ENCOUNTER 2024-05-20 11:39 | Emergency (ER) | payer OTHER ==
[~2024-05-20] VITALS: Ht 175.3 cm; Wt 75.0 kg
[~2024-05-20 11:39] MED LIST changes: +ADDERALL XR20 MG PO; +BD ALCOHOL1 SWA MC; +CARAFATE 1GM1 G PO; +IMITREX50 MG PO; +INSULIN GL100 UNIT/2 SQ; +INSULIN PEN NE1 EAC1 MC; +MINIPRESS 5M5 MG/CAP PO; +NOVOLOG FLEX100 U/ML SQ; +OZEMPIC1 MG/0.71 SQ; +PROTONIX 40MG T40 MG PO; +RESTORIL30 MG PO; +SYNTHROID0.05 MG/TA PO
[2024-05-20 11:48] VITALS: BP 107/74; TEMP 97.7
[2024-05-20] MEDS ORDERED: NS 1,000 ML IV ONE (12:15)
[2024-05-20 12:26] LABS: BASO # 0.1 K/mm3 (0.0-0.2); EOS # 0.1 K/mm3 (0.0-0.7); EOS % 1.4 % (0.0-4.0); GRAN # 4.3 K/mm3 (1.4-6.5); GRAN % 72.5 % (42.2-75.2); HEMATOCRIT 39.3 % (37.0-47.0); HEMOGLOBIN 12.7 g/dl (12.5-16.0); LYMPH # 1.2 K/mm3 (1.2-3.4); MEAN CELL VOLUME 83 fl (80.0-100.0); MEAN CORPUSCULAR HEMOGLOBIN 27 pg (27-31); MEAN CORPUSCULAR HGB CONC 32 g/dl (33.0-37.0); MEAN PLATELET VOLUME 11.7 fl (7.4-10.4); MONO # 0.3 K/mm3 (0.1-0.6); MONO % 4.9 % (1.7-9.3); PLATELET COUNT 152 K/mm3 (130-400); RED BLOOD COUNT 4.71 M/mm3 (4.10-5.30); REDCELL DISTRIBUTION WIDTH-CV 12.9 % (11.5-14.5)
[2024-05-20 12:47] LABS: ALANINE AMINOTRANSFERASE 21 U/L (0-55); ALBUMIN 3.4 g/dL (3.5-5.0); ALKALINE PHOSPHATASE 80 U/L (40-150); ANION GAP 12 mmol/L (7-16); AST,SGOT 23 U/L (5-34); BILIRUBIN,TOTAL 0.4 mg/dL (0.2-1.2); C-REACTIVE PROTEIN 0.06 mg/dL (0.00-0.50); CALCIUM 8.3 mg/dL (8.4-10.2); CHLORIDE 105 mEq/L (98-107); CREATININE, serum 0.77 mg/dL (0.57-1.11); GLUCOSE 195 mg/dL (70-99); LIPASE 30 U/L (8-78); SODIUM 139 mEq/L (136-145); TOTAL PROTEIN 6.2 g/dl (6.2-8.1)
[2024-05-20 12:50] LABS: BLOOD UREA NITROGEN < 5 mg/dL (7-19)
[2024-05-20 13:32] LABS: COLLECTION METHOD CLEAN CATCH
[2024-05-20 13:35] LABS: URINE APPEARANCE CLEAR (CLEAR/HAZY); URINE BLOOD NEGATIVE (NEGATIVE); URINE COLOR YELLOW (YELLOW); URINE GLUCOSE NEGATIVE (NEGATIVE); URINE KETONE NEGATIVE (NEGATIVE); URINE NITRATE NEGATIVE (NEGATIVE); URINE PROTEIN(semi-quant) NEGATIVE (NEGATIVE); URINE UROBILINOGEN 0.2 E.U/dL (0.2-1.0)
[2024-05-20] MEDS ORDERED: Promethazine 25 MG TAB PO ONE (13:45)
[2024-05-20] MEDS ORDERED: Ketorolac 15 MG/ML VIAL IV ONE (14:45)
[2024-05-20] MEDS ORDERED: PHENERGAN 25 TA25 MG PO (16:00)
[2024-05-20 16:12] VITALS: PULSE 71
== END 2024-05-20 16:12 | disposition home or self-care (01) ==
LOC: COL.ER 11:39
PROVIDERS: Nurse Practitioner
DX: R10.13 Epigastric pain (principal); R11.2 Nausea with vomiting, unspecified; Z90.49 Acquired absence of other specified parts of digestive tract
CPT/HCPCS: J0780; J1885; J7030